=== PATIENT | male | born 1950 | race Caucasian/White ===

== ENCOUNTER 2019-08-09 01:41 | Inpatient (IN) | payer MEDICARE, MEDICAID ==
[~2019-08-09] VITALS: Ht 162.6 cm; Wt 60.3 kg
[2019-08-09] MEDS ORDERED: ONDANSETRON HCL 4MG/2ML INJ IV STA (02:24)
[2019-08-09 03:21] LABS: BASOPHILS % 1.2 % (0.0-2.0); EOSINOPHILS % 3.9 % (0.0-5.0); HEMATOCRIT. 37.3 % (42.0-52.0); HEMOGLOBIN. 12.8 g/dL (14.0-18.0); LYMPHOCYTES % 15.9 % (20.0-50.0); MEAN CORPUSCULAR HEMOGLOBIN 31.5 pg (28.0-32.0); MEAN CORPUSCULAR VOLUME 91.7 fL (80.0-94.0); MEAN PLATELET VOLUME 8.9 fl (7.4-10.4); PLATELET 231 x1000/uL (130-400); RED BLOOD CELL COUNT 4.07 mill/uL (4.7-6.1); RED CELL DISTRIBUTION WIDTH 14.2 % (11.6-14.6)
[2019-08-09 03:22] LABS: CHLORIDE 100 mEq/L (98-107)
[2019-08-09] MEDS ORDERED: GUAIFENESIN 200MG/10ML SUGAR FREE UDC PO PRN (10:30)
[2019-08-09] MEDS ORDERED: ONDANSETRON HCL 4MG/2ML INJ IV PRN (10:30)
[2019-08-09] MEDS ORDERED: ACETAMINOPHEN 650MG SUPP PR PRN (10:30)
[2019-08-09] MEDS ORDERED: MAGNESIUM/ALUMINUM HYDROXIDE/SIMETHICONE 30ML UDC PO PRN (10:30)
[2019-08-09] MEDS ORDERED: IPRATROPIUM/ALBUTEROL 0.5-3(2.5)MG/3ML NEB NEB PRN (10:30)
[2019-08-09] MEDS ORDERED: DOCUSATE SODIUM 100MG CAPSULE PO PRN (10:30)
[2019-08-09] MEDS ORDERED: ACETAMINOPHEN 325MG TABLET PO PRN (10:30)
[2019-08-09] MEDS ORDERED: HYDROCODONE/ACETAMINOPHEN 5/325MG TABLET PO PRN (10:30)
[2019-08-09 11:19] LABS: BG BASE EXCESS 2.3 mmol/L (-2.0-2.0); BG DEOXYHEMOGLOBIN 5.6 % (0.0-5.0); BG FRACTION INSPIRED OXYGEN 21; BG HCO3 ACT 27.4 mmol/L (22.0-26.0); BG METHEMOGLOBIN 0.3 % (0.0-1.5); BG OXYGEN SATURATION 94.3 % (92.0-98.5); BG OXYHEMOGLOBIN 93.1 % (94.0-97.0); BG PCO2 44.4 mmHg (35.0-45.0); BG PH 7.408 (7.350-7.450); BG PO2 75.3 mmHg (75.0-100.0); BG SAMPLE SITE RIGHT BRACHIAL; BG TOTAL HEMOGLOBIN 12.4 g/dL (12.0-18.0); BG VENT MODE ROOM AIR
[2019-08-09] MEDS ORDERED: LEVOFLOXACIN 500MG PREMIX 100 ML IV SCH (11:45)
[2019-08-09 12:00] VITALS: BP 128/56
[2019-08-09 13:00] VITALS: BP 128/56
[2019-08-09] MEDS ORDERED: DEXTROSE 50% WATER 50ML SYRINGE IV PRN (13:30)
[2019-08-09 16:00] VITALS: BP 218/62
[2019-08-09] MEDS: BLOOD SUGAR DIAGNOSTIC STRIP TEST SCH ×2 (16:40→20:59)
[2019-08-09] MEDS: INSULIN LISPRO 100 UNITS/ML SUBCUT SCH ×2 (17:10→21:00)
[2019-08-09 17:19] LABS: INR 0.9; PROTHROMBIN TIME 9.7 sec (9.6-11.0)
[2019-08-09 17:39] LABS: CREATINE KINASE 87 IU/L (39-308); CREATINE KINASE MB FRACTION 2.3 ng/mL (0.5-3.6)
[2019-08-09 20:00] VITALS: BP 188/64
[2019-08-09] MEDS: FAMOTIDINE 20MG TABLET PO SCH (22:05)
[2019-08-09] MEDS: HEPARIN 5000 UNITS/ML VIAL SUBCUT SCH (22:08)
[2019-08-09 23:52] LABS: CREATINE KINASE 73 IU/L (39-308)
[2019-08-09 23:53] LABS: CREATINE KINASE MB FRACTION 2.1 ng/mL (0.5-3.6)
[2019-08-10] VITALS: BP 152/66
[2019-08-10 04:00] VITALS: BP 164/72
[2019-08-10] MEDS: BLOOD SUGAR DIAGNOSTIC STRIP TEST SCH ×4 (06:30→20:43)
[2019-08-10] MEDS: INSULIN LISPRO 100 UNITS/ML SUBCUT SCH ×4 (06:31→20:43)
[2019-08-10 06:40] LABS: BASOPHILS % 1.3 % (0.0-2.0); EOSINOPHILS % 4.4 % (0.0-5.0); HEMATOCRIT. 38.1 % (42.0-52.0); LYMPHOCYTES % 13.7 % (20.0-50.0); MEAN CORPUSCULAR HEMOGLOBIN 31.7 pg (28.0-32.0); MEAN PLATELET VOLUME 8.4 fl (7.4-10.4); MONOCYTES % 5.3 % (2.0-8.0); NEUTROPHILS % 75.3 % (40.0-76.0); PLATELET 221 x1000/uL (130-400); RED BLOOD CELL COUNT 4.09 mill/uL (4.7-6.1); RED CELL DISTRIBUTION WIDTH 14.3 % (11.6-14.6)
[2019-08-10 07:24] LABS: CHLORIDE 100 mEq/L (98-107)
[2019-08-10 07:31] LABS: LDL CHOLESTEROL 124 mg/dL (5-100); T4 FREE 0.84 ng/dL (0.76-1.46)
[2019-08-10 07:33] LABS: HDL CHOLESTEROL 41 mg/dL (40-59)
[2019-08-10 08:00] VITALS: BP 219/86
[2019-08-10] MEDS: HEPARIN 5000 UNITS/ML VIAL SUBCUT SCH ×2 (08:47→20:36)
[2019-08-10 12:00] VITALS: BP 204/71
[2019-08-10] MEDS: CLONIDINE 0.1MG TABLET PO PRN (13:09)
[2019-08-10 16:00] VITALS: BP 198/83
[2019-08-10 20:00] VITALS: BP 166/53
[2019-08-10] MEDS: FAMOTIDINE 20MG TABLET PO SCH (20:36)
[2019-08-11] VITALS: BP 183/84
[2019-08-11] MEDS: DIPHENHYDRAMINE 50MG/ML VIAL IV PRN ×2 (01:38→20:27)
[2019-08-11 04:00] VITALS: BP 121/62
[2019-08-11] MEDS: BLOOD SUGAR DIAGNOSTIC STRIP TEST SCH ×4 (07:20→20:16)
[2019-08-11] MEDS: INSULIN LISPRO 100 UNITS/ML SUBCUT SCH ×4 (07:50→20:16)
[2019-08-11 08:00] VITALS: BP 180/88
[2019-08-11] MEDS: LEVOFLOXACIN 500MG PREMIX 100 ML IV SCH ×2 (08:00→13:41)
[2019-08-11] MEDS: CLONIDINE 0.1MG TABLET PO PRN (09:42)
[2019-08-11] MEDS: HEPARIN 5000 UNITS/ML VIAL SUBCUT SCH ×2 (09:44→20:27)
[2019-08-11 12:00] VITALS: BP 150/66
[2019-08-11 16:00] VITALS: BP 155/74
[2019-08-11 20:00] VITALS: BP 130/84
[2019-08-11] MEDS: FAMOTIDINE 20MG TABLET PO SCH (20:27)
[2019-08-11] MEDS: LORAZEPAM 0.5MG TABLET PO PRN (21:46)
[2019-08-12] VITALS (11 sets, daily range): BP systolic 99–194; BP diastolic 57–86
[2019-08-12] MEDS: DIPHENHYDRAMINE 50MG/ML VIAL IV PRN (02:09)
[2019-08-12] MEDS: LORAZEPAM 0.5MG TABLET PO PRN (02:52)
[2019-08-12] MEDS: CLONIDINE 0.1MG TABLET PO PRN ×2 (05:23→15:45)
[2019-08-12] MEDS: BLOOD SUGAR DIAGNOSTIC STRIP TEST SCH ×4 (06:34→21:00)
[2019-08-12] MEDS: INSULIN LISPRO 100 UNITS/ML SUBCUT SCH ×4 (07:48→21:00)
[2019-08-12] MEDS: HEPARIN 5000 UNITS/ML VIAL SUBCUT SCH ×2 (09:17→22:19)
[2019-08-12 13:33] LABS: BG BASE EXCESS 0.1 mmol/L (-2.0-2.0); BG CARBOXYHEMOGLOBIN 0.8 % (0.5-1.5); BG FRACTION INSPIRED OXYGEN 21; BG HCO3 ACT 24.3 mmol/L (22.0-26.0); BG METHEMOGLOBIN 0.3 % (0.0-1.5); BG OXYGEN SATURATION 94.9 % (92.0-98.5); BG OXYHEMOGLOBIN 93.9 % (94.0-97.0); BG PCO2 37.9 mmHg (35.0-45.0); BG PH 7.425 (7.350-7.450); BG PO2 77.8 mmHg (75.0-100.0); BG SAMPLE SITE RIGHT RADIAL; BG VENT MODE ROOM AIR
[2019-08-12 14:00] LABS: EOSINOPHILS % 2.8 % (0.0-5.0); HEMATOCRIT. 38.1 % (42.0-52.0); HEMOGLOBIN. 13.1 g/dL (14.0-18.0); LYMPHOCYTES % 13.2 % (20.0-50.0); MEAN CORPUSCULAR HEMOGLOBIN 31.6 pg (28.0-32.0); MEAN CORPUSCULAR VOLUME 92.3 fL (80.0-94.0); MEAN PLATELET VOLUME 8.8 fl (7.4-10.4); MONOCYTES % 7.7 % (2.0-8.0); NEUTROPHILS % 75.3 % (40.0-76.0); PLATELET 194 x1000/uL (130-400); RED BLOOD CELL COUNT 4.13 mill/uL (4.7-6.1); RED CELL DISTRIBUTION WIDTH 14.6 % (11.6-14.6)
[2019-08-12] MEDS: HYDRALAZINE 20MG/ML VIAL IV PRN (18:20)
[2019-08-12] MEDS: FAMOTIDINE 20MG TABLET PO SCH (22:18)
[2019-08-13] VITALS: BP 187/81
[2019-08-13] MEDS: HYDRALAZINE 20MG/ML VIAL IV PRN (00:28)
[2019-08-13 02:00] VITALS: BP 140/64
[2019-08-13 04:00] VITALS: BP 157/78
[2019-08-13 06:32] LABS: HEMATOCRIT 40.4 % (42.0-52.0); HEMOGLOBIN 13.8 g/dL (14.0-18.0); MEAN CORPUSCULAR HEMOGLOBIN 31.6 pg (28.0-32.0); MEAN CORPUSCULAR VOLUME 92.5 fL (80.0-94.0); PLATELET 193 x1000/uL (130-400); RED BLOOD CELL COUNT 4.37 mill/uL (4.7-6.1); RED CELL DISTRIBUTION WIDTH 14.6 % (11.6-14.6)
[2019-08-13] MEDS: BLOOD SUGAR DIAGNOSTIC STRIP TEST SCH ×2 (07:32→12:13)
[2019-08-13] MEDS: INSULIN LISPRO 100 UNITS/ML SUBCUT SCH ×2 (07:33→12:36)
[2019-08-13 07:45] VITALS: BP 163/75
[2019-08-13] MEDS: HEPARIN 5000 UNITS/ML VIAL SUBCUT SCH (09:51)
[2019-08-13 12:00] VITALS: BP 140/76
[2019-08-13] MEDS ORDERED: ALBU90AE INH (12:49)
[2019-08-13] MEDS ORDERED: ASPI-1497 MT (12:49)
[2019-08-13] MEDS ORDERED: HYDR-4135 MT (12:49)
[2019-08-13] MEDS ORDERED: ATOR10TA MT (12:49)
[2019-08-13] MEDS ORDERED: LEVOFLOXACIN 500MG PREMIX 100 ML IV SCH (13:00)
[2019-08-13 16:00] VITALS: BP 129/72
== END 2019-08-13 17:30 | disposition home health service (06) | DRG 291 ==
LOC: ER 01:41 → 7EST 04:57 → SUPCPDRO 10:29 → ENRESERV 12:13 → 6WST 08-10 21:45 → 5EST 08-12 15:00
PROVIDERS: ADMIT Internal Medicine; ATTEND Internal Medicine
PROC: 5A1D70Z Performance of Urinary Filtration, Intermittent, Less than 6 Hours Per Day (ICD-10-PCS; 2019-08-10)
PROC: 5A1D70Z Performance of Urinary Filtration, Intermittent, Less than 6 Hours Per Day (ICD-10-PCS; principal; 2019-08-11)
PROC: 5A1D70Z Performance of Urinary Filtration, Intermittent, Less than 6 Hours Per Day (ICD-10-PCS; 2019-08-12)
DX: I13.2 Hypertensive heart and chronic kidney disease with heart failure and with stage 5 chronic kidney disease, or end stage renal disease (principal); I50.33 Acute on chronic diastolic (congestive) heart failure; N18.6 End stage renal disease; J96.91 Respiratory failure, unspecified with hypoxia; J18.9 Pneumonia, unspecified organism; G93.40 Encephalopathy, unspecified; E87.2 Acidosis; N17.9 Acute kidney failure, unspecified; G90.8 Other disorders of autonomic nervous system; G30.0 Alzheimer's disease with early onset; F02.80 Dementia in other diseases classified elsewhere, unspecified severity, without behavioral disturbance, psychotic disturbance, mood disturbance, and anxiety; E11.22 Type 2 diabetes mellitus with diabetic chronic kidney disease; I27.20 Pulmonary hypertension, unspecified; H54.8 Legal blindness, as defined in USA; I95.9 Hypotension, unspecified; Z99.2 Dependence on renal dialysis; Z90.49 Acquired absence of other specified parts of digestive tract; Z03.818 Encounter for observation for suspected exposure to other biological agents ruled out; I69.30 Unspecified sequelae of cerebral infarction
CPT/HCPCS: 36415; 36600; 71045; 80048; 80053; 80061; 82140; 82375; 82550; 82553; 82805; 82962; 83036; 83605; 83880; 84439; 84443; 84484; 85025; 85027; 87635; 93005; 99285; J0360; J1200; J1644; J1815; J1956; J2405

== ENCOUNTER 2020-09-20 01:10 | Emergency (ER) | payer BC, MEDICAID ==
[~2020-09-20] VITALS: Ht 167.6 cm; Wt 82.0 kg
[~2020-09-20 01:10] MED LIST: ALBU90AE INH; ASPI-1497 MT; ATOR10TA MT; HYDR-4135 MT
[2020-09-20] MEDS ORDERED: ASPIRIN 81MG TABLET PO ONE (02:15)
[2020-09-20 02:32] LABS: BASOPHILS % 1.3 % (0.0-2.0); EOSINOPHILS % 4.6 % (0.0-5.0); HEMATOCRIT. 33.7 % (42.0-52.0); HEMOGLOBIN. 11.3 g/dL (14.0-18.0); LYMPHOCYTES % 24.9 % (20.0-50.0); MEAN CORPUSCULAR HEMOGLOBIN 31.3 pg (28.0-32.0); MEAN PLATELET VOLUME 8.4 fl (7.4-10.4); MONOCYTES % 8.8 % (2.0-8.0); NEUTROPHILS % 60.4 % (40.0-76.0); PLATELET 129 x1000/uL (130-400); RED BLOOD CELL COUNT 3.62 mill/uL (4.7-6.1)
[2020-09-20 02:33] LABS: CHLORIDE 100 mEq/L (98-107)
[2020-09-20] MEDS ORDERED: HYDRALAZINE HCL 25MG TABLET PO ONE (04:30)
[2020-09-20] MEDS ORDERED: AZITHROMYCIN 500 MG in DEXT 5% WATER 250 ML IV ONE (04:30)
[2020-09-20] MEDS ORDERED: CEFTRIAXONE 1 G PREMIX 50 ML IV ONE (04:30)
[2020-09-20 05:50] VITALS: BP 199/67
== END 2020-09-20 06:43 | disposition left against medical advice (07) ==
LOC: ER 01:10 → CANBEDREQ 07:47
DX: R91.8 Other nonspecific abnormal finding of lung field (principal); Z20.822 Contact with and (suspected) exposure to COVID-19; I10 Essential (primary) hypertension; Z79.899 Other long term (current) drug therapy
CPT/HCPCS: 36415; 71045; 80053; 83605; 83880; 84484; 85025; 93005; 99285; J0456; J7060